=== PATIENT | male | born 1970 | race Caucasian/White ===

== ENCOUNTER 2020-06-12 01:04 | Emergency (ER) | payer OTHER, MEDICAID, SELFPAY ==
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
[2020-06-12 02:00] VITALS: BP 102/57; PULSE 75; RESP 18; TEMP 36.8; O2SAT 96; BMI 18.7
[2020-06-12 02:31] VITALS: BP 102/57; PULSE 75; RESP 18; TEMP 36.8; O2SAT 96
[2020-06-12 02:57] VITALS: TEMP 36.8
[2020-06-12] MEDS: ACETAMINOPHEN 325 MG TABLET 650 MG PO (02:57)
[2020-06-12 03:00] VITALS: BP 95/52; PULSE 67; RESP 16; TEMP 36.8; O2SAT 100
== END 2020-06-12 03:01 | disposition home or self-care (01) ==
PROVIDERS: Emergency Provider Emergency Medicine
DX: Z02.89 Encounter for other administrative examinations (principal); S43.402A Unspecified sprain of left shoulder joint, initial encounter; S70.02XA Contusion of left hip, initial encounter; S70.01XA Contusion of right hip, initial encounter; V49.9XXA Car occupant (driver) (passenger) injured in unspecified traffic accident, initial encounter
CPT/HCPCS: 71045; 72170; 99283; 99284